=== PATIENT | male | born 1970 | race Caucasian/White ===

== ENCOUNTER 2022-01-23 11:00 | Outpatient (CLI) | payer BC | END 2022-01-23 11:01 | disposition home or self-care (01) | LOC: PET 11:00 | PROVIDERS: ATTEND Internal Medicine Hematology & Oncology | DX: C82.61 Cutaneous follicle center lymphoma, lymph nodes of head, face, and neck (principal) | CPT/HCPCS: 78816; A9552 ==

== ENCOUNTER 2022-06-20 13:41 | Outpatient (CLI) | payer BC | END 2022-06-20 13:42 | disposition home or self-care (01) | LOC: PET 13:41 | PROVIDERS: ATTEND Internal Medicine Hematology & Oncology | DX: C82.61 Cutaneous follicle center lymphoma, lymph nodes of head, face, and neck (principal) | CPT/HCPCS: 78816; A9552 ==